=== PATIENT | male | born 2000 | race Caucasian/White ===

== ENCOUNTER 2022-05-28 21:42 | Emergency (ER) | payer MEDICAID ==
[~2022-05-28] VITALS: Ht 154.9 cm; Wt 71.2 kg
[2022-05-28 21:47] VITALS: BP_SYST 108
--- NOTE | 2022-05-28 21:52 | NUR ---
PT HERE C/O SORETHROAT X2 DAYS. HE STATED THAT IT HURTS TO SWALLOW. PER PT HE DID COVID SWABBED TODAY AND THE RESULT IS POSITIVE. PT DENIES FEVER, DENIES N/V/D. PMH;DENIES PT AAOX4, NO SOB NOTED. PENDING MD SAMSON
[2022-05-28] MEDS ORDERED: CLIN-22 PO (22:29)
[2022-05-28] MEDS ORDERED: CLINDAMYCIN HCL 150 MG CAPSULE PO ONE (22:30)
[2022-05-28] MEDS ORDERED: DEXAMETHASONE SOD PHOSPHATE 10 MG/ML VIAL PO ONE (22:30)
--- NOTE | 2022-05-28 22:43 | NUR ---
COVID AND STREPT SWAB SENT TO LAB.
--- NOTE | 2022-05-28 22:44 | NUR ---
Patient given written and verbal discharge instructions and verbalizes understanding. ER MD discussed with patient the results and treatment provided. Patient in stable condition. ID arm band removed. IV catheter removed intact and dressing applied, no active bleeding. Rx of CLINDA given. Patient educated on pain management and to follow up with PMD. Pain Scale . Opportunity for questions provided and answered. Medication side effect fact sheet provided.
--- NOTE | 2022-05-28 22:50 | NUR ---
Daysi hernández in [facility] - 05/28/22 at 2313 by [email or web address] PT SEEN AND EXAMINE BY DR. SANDHU
== END 2022-05-28 22:45 | disposition home or self-care (01) ==
LOC: SED 21:42
DX: U07.1 COVID-19 (principal); J02.9 Acute pharyngitis, unspecified; Z79.899 Other long term (current) drug therapy
CPT/HCPCS: 99283; 87426; 86403; 36415; 87081; J1100